=== PATIENT | female | born 1995 | race Caucasian/White ===

== ENCOUNTER 2021-01-15 10:20 | Emergency (ER) | payer OTHER ==
[~2021-01-15] VITALS: Ht 165.1 cm; Wt 84.1 kg
--- OUTSIDE RECORDS SUMMARY | 2021-01-15 10:26 | CCD ---
Author Author [facility] Address Unknown Phone Unavailable Support Name Relationship Address Phone UE Next Of Kin Unknown Unavailable JER NORRIS Next Of Kin [address] [place] [address] JER NORRIS [place] [address] [place] [address] Unavailable Re-disclosure Warning The records that you are about to access may contain information from federally-assisted alcohol or drug abuse programs. If such information is present, then the following federally mandated warning applies: This information has been disclosed to you from records protected by federal confidentiality rules (42 CFR part 2). The federal rules prohibit you from making any further disclosure of this information unless further disclosure is expressly permitted by the written consent of the person to whom it pertains or as otherwise permitted by 42 CFR part 2. A general authorization for the release of medical or other information is NOT sufficient for this purpose. The Federal rules restrict any use of the information to criminally investigate or prosecute any alcohol or drug abuse patient.The records that you are about to access may contain highly sensitive health information, the redisclosure of which is protected by Article 27-F of the [facility] Public Health law. If you continue you may have access to information: Regarding HIV / AIDS; Provided by facilities licensed or operated by the [facility] Office of Mental Health; or Provided by the [facility] Office for People With Developmental Disabilities. If such information is present, then the following [facility] mandated warning applies: This information has been disclosed to you from confidential records which are protected by state law. State law prohibits you from making any further disclosure of this information without the specific written consent of the person to whom it pertains, or as otherwise permitted by law. Any unauthorized further disclosure in violation of state law may result in a fine or chcf sentence or both. A general authorization for the release of medical or other information is NOT sufficient authorization for further disc losure. Encounters Encounter Providers Location Date Indications Data Source(s ) [place] [address] [facility] [address] 10/22/2020 12:00:00 AM EDT eCW1 ([facility]) [place] [address] [facility] [address] 08/05/2020 12:00:00 AM EDT eCW1 ([facility]) [place] [address] [facility] [address] 06/03/2020 12:00:00 AM EDT eCW1 ([facility]) [place] [address] [facility] [address] 04/30/2020 12:00:00 AM EST eCW1 ([facility]) [place] [address] [facility] [address] 02/17/2020 12:00:00 AM EST eCW1 ([facility]) [place] [address] [facility] [address] 01/29/2020 12:00:00 AM EST eCW1 ([facility]) Immunizations Vaccine Date Status Description Data Source(s) influenza, recombinant, quadrIvalent,injectable, prese rvative free 01/29/2020 02:20:00 PM EST completed eCW1 ([facility]) influenza, recombinant, quadrIvalent,injectable, prese rvative free 01/29/2020 02:20:00 PM EST completed eCW1 ([facility]) influenza, recombinant, quadrIvalent,injectable, prese rvative free 01/29/2020 02:20:00 PM EST completed eCW1 ([facility]) influenza, recombinant, quadrIvalent,injectable, prese rvative free 01/29/2020 02:20:00 PM EST completed eCW1 ([facility]) influenza, recombinant, quadrIvalent,injectable, prese rvative free 01/29/2020 02:20:00 PM EST completed eCW1 ([facility]) influenza, recombinant, quadrIvalent,injectable, prese rvative free 01/29/2020 02:20:00 PM EST completed eCW1 ([facility]) Medications Medication Brand Name Start Date Product Form Dose Route Admi nistrative Instructions Pharmacy Instructions Status Indications Reaction Description Data Source(s) Citalopram 40 MG Oral Tablet Citalopram Hydrobromide 4 0 MG Citalopram Hydrobromide 40 MG 01/29/2020 12:00:00 AM EST 1.0 {tablet} active Citalopram Hydrobromide 40 MG eCW1 ([facility]) Citalopram 10 MG Oral Tablet Citalopram Hydrobromide 1 0 MG Citalopram Hydrobromide 10 MG 01/29/2020 12:00:00 AM EST 1.0 {tablet} active Citalopram Hydrobromide 10 MG eCW1 ([facility]) Citalopram 10 MG Oral Tablet Citalopram Hydrobromide 1 0 MG Citalopram Hydrobromide 10 MG 01/29/2020 12:00:00 AM EST 1.0 {tablet} active Citalopram Hydrobromide 10 MG eCW1 ([facility]) Citalopram 10 MG Oral Tablet Citalopram Hydrobromide 1 0 MG Citalopram Hydrobromide 10 MG 01/29/2020 12:00:00 AM EST 1.0 {tablet} active Citalopram Hydrobromide 10 MG eCW1 ([facility]) Citalopram 20 MG Oral Tablet Citalopram Hydrobromide 2 0 MG Citalopram Hydrobromide 20 MG 01/29/2020 12:00:00 AM EST 1.0 {tablet} active Citalopram Hydrobromide 20 MG eCW1 ([facility]) Insurance Providers Payer name Policy type / Coverage type Policy ID Covered alliance party ID Covered alliance party's relationship to bernal Policy Bernal Plan Information [facility] [id number] Problems, Conditions, and Diagnoses Code Display Name Description Problem Type Effective Dates Data Source(s) F41.9 [id number] Anxiety disorder, unspecified type Proble m 02/17/2020 12:00:00 AM EST eCW1 ([facility]) F34.1 [id number] Dysthymia Problem 01/29/2020 12:00:00 AM ES T eCW1 ([facility]) Surgeries/Procedures Procedure Description Date Indications Data Source(s) Immunization: Flublok Quadrivalent (18 years & older) 0.5mL IM (Influenza) 01/29/2020 12:00:00 AM EST eCW1 ([facility]) Results No Information Social History Code Duration Value Status Description Data Source(s ) Smoking 10/22/2020 12:00:00 AM EDT Never Smoker completed Never S moker eCW1 ([facility]) Smoking 08/05/2020 12:00:00 AM EDT Never Smoker completed Never S moker eCW1 ([facility]) Smoking 06/03/2020 12:00:00 AM EDT Never Smoker completed Never S moker eCW1 ([facility]) Smoking 04/01/2020 12:00:00 AM EST Never Smoker completed Never S moker eCW1 ([facility]) Smoking 01/29/2020 12:00:00 AM EST Never Smoker completed Never S moker eCW1 ([facility]) Smoking 01/29/2020 12:00:00 AM EST Never Smoker completed Never S moker eCW1 ([facility]) Vital Signs ID Date Data Source UNK Name Value Range Interpretation Code Description Data Source(s) Body weight 188.2 [lb_av] 188.2 [lb_av] eCW1 ([facility]) Body weight 85.37 kg 85.37 kg eCW1 ([facility]) Body height 65 [in_i] 65 [in_i] eCW1 ([facility]) Body mass index (BMI) [Ratio] 31.31 kg/m2 31.31 kg/m2 eCW1 ([facility]) Heart rate 88 /min 88 /min eCW1 ([facility]) Respiratory rate 18 /min 18 /min eCW1 ([facility]) Body temperature 97.2 [degF] 97.2 [degF] eCW1 ( [facility]) Systolic blood pressure 127 mm[Hg] 127 mm[Hg] e CW1 ([facility]) Diastolic blood pressure 77 mm[Hg] 77 mm[Hg] eCW1 ([facility]) Body weight 189 [lb_av] 189 [lb_av] eCW1 ([facility]) Body height 65 [in_i] 65 [in_i] eCW1 ([facility]) Body mass index (BMI) [Ratio] 31.45 kg/m2 31.45 kg/m2 eCW1 ([facility]) Heart rate 82 /min 82 /min eCW1 ([facility]) Respiratory rate 17 /min 17 /min eCW1 ([facility]) Body temperature 98.3 [degF] 98.3 [degF] eCW1 ( [facility]) Systolic blood pressure 124 mm[Hg] 124 mm[Hg] e CW1 ([facility]) Diastolic blood pressure 86 mm[Hg] 86 mm[Hg] eCW1 ([facility]) Body weight 191.4 [lb_av] 191.4 [lb_av] eCW1 ([facility]) Body height 65 [in_i] 65 [in_i] eCW1 ([facility]) Body mass index (BMI) [Ratio] 31.85 kg/m2 31.85 kg/m2 eCW1 ([facility]) Heart rate 63 /min 63 /min eCW1 ([facility]) Respiratory rate 18 /min 18 /min eCW1 ([facility]) Body temperature 96.5 [degF] 96.5 [degF] eCW1 ( [facility]) Systolic blood pressure 129 mm[Hg] 129 mm[Hg] e CW1 ([facility]) Diastolic blood pressure 86 mm[Hg] 86 mm[Hg] eCW1 ([facility]) Patient Treatment Plan of Care Planned Activity Planned Date Details Description Data Source (s) Citalopram 40 MG Oral Tablet 01/29/2020 12:00:00 AM EST eCW1 ([facility]) Citalopram 20 MG Oral Tablet 01/29/2020 12:00:00 AM EST eCW1 ([facility]) Citalopram 10 MG Oral Tablet 01/29/2020 12:00:00 AM EST eCW1 ([facility]) Citalopram 10 MG Oral Tablet 01/29/2020 12:00:00 AM EST eCW1 ([facility]) Citalopram 10 MG Oral Tablet 01/29/2020 12:00:00 AM EST eCW1 ([facility])
--- OUTSIDE RECORDS SUMMARY | 2021-01-15 10:26 | CCD ---
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 Name Role Phone Ciara Gimenez Unavailable PROBLEMS Type Condition ICD9-CM Code [id number] Code Onset Dates Condition S tatus W/U Status Risk SNOMED Code Notes Problem Dysthymia F34.1 Active confirmed [id number] Problem Anxiety disorder, unspecified type F41.9 Activ e confirmed [id number] ALLERGIES No Known Allergies ENCOUNTERS from 1995 to 2020-10-29 Encounter Location Date Provider Diagnosis [facility] [address] [facility] [phone] [place] [address] Oct, Ciara Gimenez Dysthymia F34.1 and Anxiety disorder, unspecified type F41.9 IMMUNIZATIONS Vaccine Route Administration Date Status Influenza 18 yrs & older Flublok IM Intramuscular Jan 29, 2020 Administered SOCIAL HISTORY Tobacco Use: Social History Observation Description Date Details (start date - stop date) Never Smoker Sex Assigned At : Social History Observation Description Sex Assigned At Unknown Education: Question Answer Notes Level of Education: High School Audit Question Answer Notes Total Score: 0 Interpretation: Alcohol Education Language: Question Answer Notes Languages spoken: Syriac Quaker: Question Answer Notes Quaker No mandaen beliefs that would impact health care. Domestic Violence: Question Answer Notes Status: Sexual Hx: Question Answer Notes Had sex in the last 12 months (vaginal, oral, or anal)? Yes LMP: 01/21/2020 Have you ever had an STD? No Prevention Strategies discussed: Condoms with Men only Use protection? Yes How often? All of the time Drug and Alcohol Question Answer Notes Total Score: 0 Interpretation: No problems reported Alcohol Screening: Question Answer Notes Did you have a drink containing alcohol in the past year? No Points 0 Interpretation Negative Tobacco Use: Question Answer Notes Are you a: never smoker REASON FOR REFERRAL No Information VITAL SIGNS Weight 188.2 lbs Oct, Weight-kg 85.37 kg Oct, Height 65 in Oct, BMI 31.31 kg/m2 Oct, Heart Rate 88 /min Oct, Respiratory Rate 18 /min Oct, Temperature 97.2 degrees Fahrenheit Oct, Oximetry 98 Oct, Blood pressure systolic 127 mm Hg Oct, Blood pressure diastolic 77 mm Hg Oct, MEDICATIONS Medication SIG (Take, Route, Frequency, Duration) Notes Start Da te End Date Status Citalopram Hydrobromide 20 MG 1.5 tablet Orally Once a day for 90 day s Active PROCEDURES No Information RESULTS No Results REASON FOR VISIT 2 month f/u MEDICAL (GENERAL) HISTORY Type Description Date Surgical History [place] [facility] 2011 Goals Section No Information Health Concerns No Information MEDICAL EQUIPMENT No Information MENTAL STATUS No Information FUNCTIONAL STATUS No Information ASSESSMENTS Encounter Date Diagnosis Assessment Notes Treatment Notes Treatm ent Clinical Notes Oct, Dysthymia (ICD-10 - F34.1) Discussed options of increasing citalopram 30mg and monitoing closely vs adjunct therapy (Wellbutrin, Rexulti) vs change SSRI altogether. Pt elects increase to 30mg. Also advised consult as does not appear to be responding to SSRI as anticipated.Pt uestioning diagnosis of ADHD, however I do not feel she meets criteria. Plan FU in 2 months, sooner if needed (or prn if establishes with BH). Oct, Anxiety disorder, unspecified type (ICD-10 - F41 .9) PLAN OF TREATMENT Medication Medication Name Sig Start Date Stop Date Citalopram Hydrobromide 20 MG 1.5 tablet Orally Once a day for 9 0 days Treatment Notes Assessment Notes Clinical Notes Dysthymia Discussed options of increasing citalopram 30mg and monitoing closely vs adjunct therapy (Wellbutrin, Rexulti) vs change SSRI altogether. Pt elects increase to 30mg. Also advised consult as does not appear to be responding to SSRI as anticipated.Pt uestioning diagnosis of ADHD, however I do not feel she meets criteria. Plan FU in 2 months, sooner if needed (or prn if establishes with ). Next Appt Details 2 Months Reason: Insurance Providers Payer Name Payer Address Payer Phone Insured Name Patient Relati onship to Insured Coverage Start Date Coverage End Date [place] [phone] ANGELA NORRIS self
--- OUTSIDE RECORDS SUMMARY | 2021-01-15 11:59 | CCD ---
Author Author [facility] Address Unknown Phone Unavailable Support Name Relationship Address [place] [address] UE Next Of Kin Unknown Unavailable JER NORRIS Next Of Kin [address] [place] [address] JER NORRIS [place] [address] [place] [address] Unavailable Re-disclosure Warning The records that you [...] is protected by Article 27-F of the [facility] Public Health law. If you continue you may have access to information: Regarding HIV / AIDS; Provided by facilities licensed or operated by the [facility] Office of Mental Health; or Provided by the [facility] Office for People With Developmental Disabilities. If such information is present, then the following [facility] mandated warning applies: This information has been [...] law may result in a fine or intermediate sentence or both. A general authorization for the release of medical or other information is NOT sufficient authorization for further disc losure. Encounters Encounter Providers Location Date Indications Data Source(s ) [place] [address] [facility] [address] 10/22/2020 12:00:00 AM EDT eCW1 ([facility]) [place]patient [address] [facility] [address] 08/05/2020 12:00:00 AM EDT eCW1 ([facility]) [place]patient [address] [facility] [address] 06/03/2020 12:00:00 AM EDT eCW1 ([facility]) Unknown [address] [facility] [address] 04/30/2020 12:00:00 AM EST eCW1 ([facility]) Outpatient [address] [facility] [address] 02/17/2020 12:00:00 AM EST eCW1 ([facility]) Outpatient [address] [facility] [address] 01/29/2020 12:00:00 AM EST eCW1 ([facility]) Immunizations Vaccine Date Status Description Data Source(s) influenza, recombinant, quadrIvalent,injectable, prese rvative free 01/29/2020 02:20:00 PM EST completed eCW1 ([facility]) influenza, recombinant, quadrIvalent,injectable, prese rvative free 01/29/2020 02:20:00 PM EST completed eCW1 ([facility]) influenza, recombinant, quadrIvalent,injectable, prese rvative free 01/29/2020 02:20:00 PM EST completed eCW1 ([facility]) influenza, recombinant, quadrIvalent,injectable, prese rvative free 01/29/2020 02:20:00 PM EST completed eCW1 ([facility]) influenza, recombinant, quadrIvalent,injectable, prese rvative free 01/29/2020 02:20:00 PM EST completed eCW1 ([facility]) influenza, recombinant, quadrIvalent,injectable, prese rvative free 01/29/2020 02:20:00 PM EST completed eCW1 ([facility]) Medications Medication Brand Name Start Date Product Form Dose Route Admi nistrative Instructions Pharmacy Instructions Status Indications Reaction Description Data Source(s) Citalopram 40 MG Oral Tablet Citalopram Hydrobromide 4 0 MG Citalopram Hydrobromide 40 MG 01/29/2020 12:00:00 AM EST 1.0 {tablet} active Citalopram Hydrobromide 40 MG eCW1 ([facility]) Citalopram 10 MG Oral Tablet Citalopram Hydrobromide 1 0 MG Citalopram Hydrobromide 10 MG 01/29/2020 12:00:00 AM EST 1.0 {tablet} active Citalopram Hydrobromide 10 MG eCW1 ([facility]) Citalopram 10 MG Oral Tablet Citalopram Hydrobromide 1 0 MG Citalopram Hydrobromide 10 MG 01/29/2020 12:00:00 AM EST 1.0 {tablet} active Citalopram Hydrobromide 10 MG eCW1 ([facility]) Citalopram 10 MG Oral Tablet Citalopram Hydrobromide 1 0 MG Citalopram Hydrobromide 10 MG 01/29/2020 12:00:00 AM EST 1.0 {tablet} active Citalopram Hydrobromide 10 MG eCW1 ([facility]) Citalopram 20 MG Oral Tablet Citalopram Hydrobromide 2 0 MG Citalopram Hydrobromide 20 MG 01/29/2020 12:00:00 AM EST 1.0 {tablet} active Citalopram Hydrobromide 20 MG eCW1 ([facility]) Insurance Providers Payer name Policy type / Coverage type Policy ID Covered republican ID Covered republican's relationship to bernal Policy Bernal Plan Information [facility] [id number] Problems, Conditions, and Diagnoses Code Display Name Description Problem Type Effective Dates Data Source(s) F41.9 [id number] Anxiety disorder, unspecified type Proble m 02/17/2020 12:00:00 AM EST eCW1 ([facility]) F34.1 [id number] Dysthymia Problem 01/29/2020 12:00:00 AM ES T eCW1 ([facility]) Surgeries/Procedures Procedure Description Date Indications Data Source(s) Immunization: Flublok Quadrivalent (18 years & older) 0.5mL IM (Influenza) 01/29/2020 12:00:00 AM EST eCW1 ([facility]) Results No Information Social History Code Duration Value Status Description Data Source(s ) Smoking 10/22/2020 12:00:00 AM EDT Never Smoker completed Never S moker eCW1 ([facility]) Smoking 08/05/2020 12:00:00 AM EDT Never Smoker completed Never S moker eCW1 ([facility]) Smoking 06/03/2020 12:00:00 AM EDT Never Smoker completed Never S moker eCW1 ([facility]) Smoking 04/01/2020 12:00:00 AM EST Never Smoker completed Never S moker eCW1 ([facility]) Smoking 01/29/2020 12:00:00 AM EST Never Smoker completed Never S moker eCW1 ([facility]) Smoking 01/29/2020 12:00:00 AM EST Never Smoker completed Never S moker eCW1 ([facility]) Vital Signs ID Date Data Source UNK Name Value Range Interpretation Code Description Data Source(s) Body weight 188.2 [lb_av] 188.2 [lb_av] eCW1 ([facility]) Body weight 85.37 kg 85.37 kg eCW1 ([facility]) Body height 65 [in_i] 65 [in_i] eCW1 ([facility]) Body mass index (BMI) [Ratio] 31.31 kg/m2 31.31 kg/m2 eCW1 ([facility]) Heart rate 88 /min 88 /min eCW1 ([facility]) Respiratory rate 18 /min 18 /min eCW[facility] Body temperature 97.2 [degF] 97.2 [degF] eCW1 ( [facility]) Systolic blood pressure 127 mm[Hg] 127 mm[Hg] e CW1 ([facility]) Diastolic blood pressure 77 mm[Hg] 77 mm[Hg] eCW1 ([facility]) Body weight 189 [lb_av] 189 [lb_av] eCW1 ([facility]) Body height 65 [in_i] 65 [in_i] eCW1 ([facility]) Body mass index (BMI) [Ratio] 31.45 kg/m2 31.45 kg/m2 eCW1 ([facility]) Heart rate 82 /min 82 /min eCW1 ([facility]) Respiratory rate 17 /min 17 /min eCW1 ([facility] Body temperature 98.3 [degF] 98.3 [degF] eCW1 ( [facility]) Systolic blood pressure 124 mm[Hg] 124 mm[Hg] e CW1 ([facility]) Diastolic blood pressure 86 mm[Hg] 86 mm[Hg] eCW1 ([facility]) Body weight 191.4 [lb_av] 191.4 [lb_av] eCW1 ([facility]) Body height 65 [in_i] 65 [in_i] eCW1 ([facility]) Body mass index (BMI) [Ratio] 31.85 kg/m2 31.85 kg/m2 eCW1 ([facility]) Heart rate 63 /min 63 /min eCW1 ([facility]) Respiratory rate 18 /min 18 /min eCW1 ([facility]) Body temperature 96.5 [degF] 96.5 [degF] eCW1 ( [facility]) Systolic blood pressure 129 mm[Hg] 129 mm[Hg] e CW1 ([facility]) Diastolic blood pressure 86 mm[Hg] 86 mm[Hg] eCW1 ([facility]) Patient Treatment Plan of Care Planned Activity Planned Date Details Description Data Source (s) Citalopram 40 MG Oral Tablet 01/29/2020 12:00:00 AM EST eCW1 ([facility]) Citalopram 20 MG Oral Tablet 01/29/2020 12:00:00 AM EST eCW1 ([facility]) Citalopram 10 MG Oral Tablet 01/29/2020 12:00:00 AM EST eCW1 ([facility]) Citalopram 10 MG Oral Tablet 01/29/2020 12:00:00 AM EST eCW1 ([facility]) Citalopram 10 MG Oral Tablet 01/29/2020 12:00:00 AM EST eCW1 ([facility])
[2021-01-15 12:19] LABS: RSV AMPLIFICATION NEGATIVE (NEGATIVE)
[2021-01-15 14:11] VITALS: BP 121/75
== END 2021-01-15 14:24 | disposition home or self-care (01) ==
LOC: M ED 10:20
DX: J06.9 Acute upper respiratory infection, unspecified (principal)

== ENCOUNTER → 2021-05-05 | Outpatient (REF) | payer OTHER ==
[2021-05-05 13:56] LABS: AMORPHOUS SEDIMENT LARGE (NEGATIVE); APPEARANCE, URINE TURBID (CLEAR); BACTERIA, URINE AUTO 1+ (NEGATIVE); BILIRUBIN, URINE AUTO NEGATIVE (NEGATIVE); BLOOD, URINE BLOOD 2+ (NEGATIVE); COLOR, URINE YELLOW (YELLOW); GLUCOSE, URINE (UA) AUTO NEGATIVE (NEGATIVE); KETONE, URINE AUTO NEGATIVE (NEGATIVE); LEUKOCYTE ESTERASE, URINE AUTO 3+ (NEGATIVE); MUCUS, URINE LARGE (NEGATIVE); NITRITE, URINE AUTO NEGATIVE (NEGATIVE); PROTEIN, URINE AUTO NEGATIVE (NEGATIVE); RBC, URINE AUTO 1 /HPF (0-3); SPECIFIC GRAVITY URINE AUTO 1.027 (1.002-1.035); SQUAMOUS EPITHELIAL CELL UR AU 3 /HPF (0-6); WBC, URINE AUTO 15 /HPF (0-3)
== END ==
LOC: M SFHCPLAZ 12:39
PROVIDERS: ATTEND Physician Assistant
DX: R31.9 Hematuria, unspecified (principal); K52.9 Noninfective gastroenteritis and colitis, unspecified
CPT/HCPCS: 81001; 81002; 87086; 87426; G0463; U0003

== ENCOUNTER → 2021-07-15 | Outpatient (CLI) | payer OTHER ==
[2021-07-15 11:42] LABS: CHOLESTEROL RISK RATIO 3.122 (<5)
== END ==
LOC: M PLALAB 07:39
DX: F41.9 Anxiety disorder, unspecified (principal); Z62.810 Personal history of physical and sexual abuse in childhood